=== PATIENT | female | born 1990 | race Caucasian/White ===

== ENCOUNTER 2023-05-11 20:22 | Emergency (ER) | payer SELFPAY ==
--- OUTSIDE RECORDS SUMMARY | 2023-05-11 21:02 | XMS REPORT | Continuity of Care Document ---
:1990 Author Organization [facility] t Address [address] [facility]. [address] [place] [address] Support Name Relationship Address Phone Humble Hernandez Significant Other [address] [facility] [phone] [address] [place] [address] YAHIR SOSA, IDA Emergency Provider [address] [facility] [phone] [place] [address] PHYSICIAN, NO Primary Care Physician Unavailable Unavailab CHRISTA Judge Next of Kin [address] [place] [address] DIANA SOSA, DOROTHEA Emergency Provider [address] [phone] [place] [address] CHRISTA REYEZ Next of Kin [address] [place] [address] SHARI SOSA, ASHANTI A Emergency Provider [address] [facility] [facility] [address] [phone] [place] [address] MARLEN SOSA, CAMMY P Attending Provider [address] [phone] [place] [address] TIM SOSA, MELISSA Bowling Emergency Provider [address] [place] [address] MD YARITZA RAMOS A Emergency Provider [facility] [address] MD RAMEZ STERN Emergency Provider Unavailable Unavailable MD CAROLINE MOHAMUD Emergency Provider [address] [place] [address] MD GLENYS GAN JR Admitting Provider [address] [place] [address] HUMBLE HERNANDEZ Family Member [address] [place] [address] MD ZULEYKA ABAD Emergency Provider [address] [phone] [place] [address] Care Team Providers Name Role Phone PCP, PATIENT DOES NOT HAVE A Primary Care Physician Unavailalvin DURANT Attending Clinician Unavailable ANTHONY GAMBOA Attending Clinician Unavailable Anthony Gamboa MD Attending Clinician ZULEYKA ABAD Attending Clinician Unavailable Lynda Yanez MD Attending Clinician LYNDA YANEZ Attending Clinician Unavailable CAMMY GEE Attending Clinician Unavailable Lee Martinez Attending Clinician VISIT, NURSE [facility] BRISA Attending Clinician Unavailable Nilda Vega Attending Clinician CARLEEN Admitting Clinician Unavailable ANTHONY GAMBOA Admitting Clinician Unavailable LYNDA YANEZ Admitting Clinician Unavailable CAMMY GEE Admitting Clinician Unavailable Payers Payer Name Policy Type Policy Number Effective Date Expiration Date S [place] MEDICAID-MD - [id number] 2023 [facility] 00:00:00 PROGRAM (MEDICAID) MEDICAID PENDING PENDING 2023 2023 00:00:00 00:00:00 [facility] [id number] 2018 CHOICE (MEDICAID 00:00:00 REPLACEMENT - HMO) Problems Condition Condition Condition Status Onset Resolution Last Treating Co mments Source Name Details Category Date Date Treatment Clinician Date Cyst of Cyst of Problem Active 2021-09 [place] Ovary 0-11 da [facility] Problem Active [place] test Test 1-04 da positive Positive 00:00: [facility] Asthma Asthma Disease Active Overview: Univer s 01-11 Formattin ity of 00:00: g of this [place] 00 note Medical might be Branch different from the original. ICD10 Diagnosis Term [employer] Attendant Utility Tobacco Tobacco Disease Active Univers use use 01-11 ity of disorder disorder 00:00: [place] [address] Medical Branch Encounter Encounter Disease Active Overview: Univers for for 5-06 Formattin ity of insertion insertion 00:00: g of this [place] of of 00 note Medical intrauteri intrauteri might be Branch ne ne different contracept contracept from the oanh device oanh device original. Pt will need WWE at next visit. Medical records received from Dr. Gee. Pap smear-2011- NILExp. 4 Depression Depression Disease Active 2013- U nivers 5-06 ity of 00:00: [place] 00 [facility] Branch Allergies, Adverse Reactions, Alerts Allergy Allergy Status Severity Reaction(s) Onset Inactive Treating Comm ents Source Name Type Date Date Clinician Amoxicil Propensi Active Other - See 2018-09 UTI U nivers nikos ty to comments 0- ity of adverse 00:00: [place] reaction 00 Medical s Branch AMOXICIL DRUG Active Other-Cmnt 2018-09 Univ ers NIKOS INGREDI 0-31 ity of 00:00: [place] 00 Medical Branch Amoxicil Allergy Active Severe Other Tyrel knott to da substanc [facility] Social History Social Habit Start Date Stop Date Quantity Comments Source History of tobacco Cigarette Smoker University of use [facility] Exposure to 2023-01-23 2023-02-02 Not sure [facility] SARS-CoV-2 (event) 00:00:00 01:21:00 [facility] Alcohol intake 2023-02-02 2023-02-02 0 /d University of 00:00:00 00:00:00 [facility] Cigarettes smoked 2015-04-14 2015-04-14 Univers ity of current (pack per 00:00:00 00:00:00 [place] ) - Reported Branch Tobacco use and 2015-04-14 2015-04-14 Smokeless Universit y of exposure 00:00:00 00:00:00 tobacco non-user [facility] dical Branch Cigarette 2015-04-14 2015-04-14 University of pack-years 00:00:00 00:00:00 [facility] Sex Assigned At [birth year] Universit y of 00:00:00 00:00:00 [facility] Smoking Status Start Date Stop Date Source Light Tobacco Smoker [place] [facility] Smokes tobacco daily 2015-04-14 00:00:00 Univers ity of [place] [facility] Medications Ordered Filled Start Stop Current Ordering Indication Dosage Frequency Signature Comments Components Source Medication Medication Date Date Medication? Clinician (SIG) Name Name clindamycin clindamycin No clindamyci [place] HCl 300 mg HCl 300 mg 02-28 n HCl 300 da capsule capsule 00:00: mg capsule E [facility] 00 [facility] Program iopamidol 2022- No [id number] 70mL 70 mL, Univers (ISOVUE 02-02 Intravenou ity o f 370-500 mL) 08:15: 08:15 s, ONCE, 1 [place] injection 00 :00 dose, On Medica l 70 mL [facility] 02/02/23 at 0315, Routine dicyclomine 2022- No 20mg 20 mg, Uni vers (BENTYL) 02-02 Intramuscu ity of injection 07:30: 07:01 [place]CE [place] 20 mg 00 :00 NOW, 1 Medical dose, On [facility] 02/02/23 at 0230, Routine ketorolac 2022- No 60mg 60 mg, Unive rs (TORADOL) 02-02 Intramuscu ity of injection 07:15: 07:01 lar[place]CE [place] 60 mg 00 :00 NOW, 1 Medical dose, On [facility] 02/02/23 at 0215, ANABELL ketorolac Yes [id number] 10mg Take 1 U nivers 10 mg 5-28 tablet by ity of tablet 00:00: mouth 00 every 6 Medical (six) Branch hours as needed for Pain (scale 4-6) or Pain (scale 7-10). hyoscyamine Yes [id number] .25mg Place 2 Univers sulfate 5-28 tablets ity of (LEVSIN/SL) 00:00: under the [place] 0.125 mg 00 tongue Medical sublingual every 6 Branch tablet (six) hours as needed (Abdominal pain or cramping). ondansetron Yes [id number] 8mg Take 1 Univers (ZOFRAN) 8 5-28 tablet by ity of mg tablet 00:00: mouth [place] 00 every 8 Medical (eight) Branch hours. acetaminoph 0 Yes [id number] 650mg Take 1 Univers en (TYLENOL 5-28 tablet by ity of ARTHRITIS 00:00: mouth [place] PAIN) 650 00 every 8 Medical mg CR (eight) Branch tablet hours as needed for Pain. ceftriaxone ceftriaxone No ceftriaxon [place] 500 mg 500 mg 1-19 e 500 mg da solution solution 14:45: solution E [facility] for for 00 for al injectionTa injectionTa injectionT Health ke 500 mg ke 500 mg katie 500 mg Outreac by by by h injection injection injection Program route. route. route. ceftriaxone ceftriaxone 2021-09 No ceftriaxon [place] 500 mg 500 mg 0-19 e 500 mg da solution solution 10:16: solution E [facility] for for 33 for al injectionTa injectionTa injectionT Health ke 500 mg ke 500 mg katie 500 mg Outreac by by by h injection injection injection Program route. route. route. levoFLOXaci 2019- No 750mg 750 mg, U nivers n 11-26 Oral, ONCE ity of (LEVAQUIN) 08:30: 07:43 NOW, 1 [place] tablet 750 00 :00 dose, Sat Medi lino mg 11/27/19 at Branch 0330, ANABELL
Re ason for Anti-Infec tive: Documented Infection< br>Documen radha Infection Site: Urine
D uration of Therapy: 7 days metroNIDAZO 2019-2019- No 2000mg 2,000 mg, Univers LE (FLAGYL) 11-26 Oral, ity of tablet 07:15: 06:12 ONCE, 1 [place] 2,000 mg 00 :00 dose, Sat Medica l 11/27/19 at Branch 0215, Routine
Reason for Anti-Infec tive: Empiric Therapy for Suspected Infection< br>Empiric Therapy Site: Pelvic
Duration of therapy: 72 hours azithromyci 2019-0 2020- No 2000mg 2,000 mg, Univers n 11-26 Oral, ity of (ZITHROMAX) 07:00: 06:12 ONCE, 1 [place] tablet 00 :00 dose, Sat Medical 2,000 mg 11/27/19 at [facility] h 0200, ANABELL
Re ason for Anti-Infec tive: Empiric Therapy for Suspected Infection< br>Empiric Therapy Site: Pelvic
Duration of therapy: 72 hours NaCl 0.9% 2019-0 2020- No 1000mL at 999 Uni vers (NS) bolus 11-26-21 mL/hr, ity of infusion 07:00: 07:53 1,000 mL, [place] 1,000 mL 00 :00 IV Medical Infusion, Branch ONCE, 1 dose, 11/27/19 at 0200, STAT iohexol 2019-0 2020- No 120mL 120 mL, Unive rs (OMNIPAQUE 11-26 Intravenou it y of 350 06:57: 06:57 s, ONCE, 1 [place] BULK-150 00 :00 dose, Sat Medica l mL) 11/27/19 at Branch injection 0200, 120 mL Routine acetaminoph 2020-0 Yes [id number] 1{tbl} Take 1-2 Univers en-codeine 3-21 tablets by ity of 300-30 mg 00:00: mouth [place] tablet 00 every 6 Medical (six) Branch hours as needed for Pain (scale 1-3). dicyclomine 2020-0 Yes [id number] 10mg Take 1 Univers (BENTYL) 10 3-21 capsule by it y of mg capsule 00:00: mouth 4 [place] 00 (four) Medical times Branch daily. acetaminoph 2020-0 Yes [id number] 1{tbl} Take 1-2 Univers en-codeine 3-21 tablets by ity of 300-30 mg 00:00: mouth [place] tablet 00 every 6 Medical (six) Branch hours as needed for Pain (scale 1-3). dicyclomine 2020-0 Yes [id number] 10mg Take 1 Univers (BENTYL) 10 3-21 capsule by it y of mg capsule 00:00: mouth 4 [place] 00 (four) Medical times Branch daily. levoFLOXaci 2020-0 2020- No [id number] 750mg Take 1 Univers n 3-21 04-01 tablet by ity of (LEVAQUIN) 00:00: 04:59 mouth [place] 750 mg 00 :00 every 24 Medical tablet (twenty-fo Branch ur) hours for 10 days. ParaGard T ParaGard T No 1device ParaGard T [place] 380A 380 380A 380 (s) 380A 380 da square mm square mm square mm [facility] intrauterin intrauterin intrauteri al e device e device ne device He alth Take 1 Take 1 Take 1 Outreac device by device by device by h intrauterin intrauterin intrauteri Program e route. e route. ne route. ceftriaxone ceftriaxone No 500mg ceftriaxon [place] 500 mg 500 mg e 500 mg da solution solution solution Epi scop for for for al injection injection injection Health Take 500 mg Take 500 mg Take 500 Outreac by by mg by h injection injection injection Program route. route. route. cephalexin cephalexin No cephalexin [place] 500 mg 500 mg 500 mg da capsule capsule capsule [facility] TAKE 1 TAKE 1 TAKE 1 al CAPSULE BY CAPSULE BY CAPSULE BY Health MOUTH FOUR MOUTH FOUR MOUTH FOUR Outreac TIMES DAILY TIMES DAILY TIMES h FOR FOR DAILY FOR Program INFECTION INFECTION INFECTION hydrocodone hydrocodone No hydrocodon [place] 5 5 e 5 da mg-acetamin mg-acetamin mg-acetami [facility] ophen 325 ophen 325 nophen 325 al mg tablet mg tablet mg tablet Health TAKE 1 TAKE 1 TAKE 1 Outreac TABLET BY TABLET BY TABLET BY h MOUTH EVERY MOUTH EVERY MOUTH Program 6 HOURS 6 HOURS EVERY 6 NEEDED FOR NEEDED FOR HOURS PAIN PAIN NEEDED FOR PAIN metronidazo metronidazo No metronidaz [place] 500 mg le 500 mg [place] 500 mg da tablet TAKE tablet TAKE tablet [facility] 1 TABLET BY 1 TABLET BY TAKE 1 al MOUTH TWICE MOUTH TWICE TABLET BY [facility] DAILY FOR 7 DAILY FOR 7 MOUTH Outreac DAYS DAYS TWICE h DAILY FOR Program 7 DAYS naproxen naproxen No naproxen [place] 500 mg 500 mg 500 mg da tablet TAKE tablet TAKE tablet [facility] 1 TABLET BY 1 TABLET BY TAKE 1 al MOUTH TWICE MOUTH TWICE TABLET BY [facility] DAILY FOR DAILY FOR MOUTH Outr eac PAIN PAIN TWICE h DAILY FOR Program PAIN nitrofurant nitrofurant No nitrofuran [place] oin oin toin da monohydrate monohydrate monohydrat [facility] /macrocryst /macrocryst e/macrocry al als 100 mg als 100 mg stals 100 Health capsule capsule mg capsule Out reac TAKE 1 TAKE 1 TAKE 1 h CAPSULE BY CAPSULE BY CAPSULE BY Program MOUTH EVERY MOUTH EVERY MOUTH 12 HOURS 12 HOURS EVERY 12 FOR 7 DAYS FOR 7 DAYS HOURS FOR 7 DAYS ondansetron ondansetron No ondansetro [place] HCl 4 mg HCl 4 mg n HCl 4 mg d a tablet TAKE tablet TAKE tablet [facility] 1 TABLET BY 1 TABLET BY TAKE 1 al MOUTH EVERY MOUTH EVERY TABLET BY Health 8 HOURS 8 HOURS MOUTH Ou treac NEEDED FOR NEEDED FOR EVERY 8 h NAUSEA OR NAUSEA OR HOURS P rogram VOMITING VOMITING NEEDED FOR NAUSEA OR VOMITING ParaGard T ParaGard T No 1device ParaGard T [place] 380A 380 380A 380 (s) 380A 380 da square mm square mm square mm [facility] intrauterin intrauterin intrauteri al e device e device ne device He alth Take 1 Take 1 Take 1 Outreac device by device by device by h intrauterin intrauterin intrauteri Program e route. e route. ne route. hydrocodone hydrocodone No hydrocodon [place] 5 5 e 5 da mg-acetamin mg-acetamin mg-acetami [facility] ophen 325 ophen 325 nophen 325 al mg tablet mg tablet mg tablet Health TAKE 1 TAKE 1 TAKE 1 Outreac TABLET BY TABLET BY TABLET BY h MOUTH EVERY MOUTH EVERY MOUTH Program 6 HOURS 6 HOURS EVERY 6 NEEDED FOR NEEDED FOR HOURS PAIN PAIN NEEDED FOR PAIN naproxen naproxen No naproxen [place] 500 mg 500 mg 500 mg da tablet TAKE tablet TAKE tablet [facility] 1 TABLET BY 1 TABLET BY TAKE 1 al MOUTH TWICE MOUTH TWICE TABLET BY [facility] DAILY FOR DAILY FOR MOUTH Outr eac PAIN PAIN TWICE h DAILY FOR Program PAIN ondansetron ondansetron No ondansetro [place] HCl 4 mg HCl 4 mg n HCl 4 mg d a tablet TAKE tablet TAKE tablet [facility] 1 TABLET BY 1 TABLET BY TAKE 1 al MOUTH EVERY MOUTH EVERY TABLET BY Health 8 HOURS 8 HOURS MOUTH Ou treac NEEDED FOR NEEDED FOR EVERY 8 h NAUSEA OR NAUSEA OR HOURS P rogram VOMITING VOMITING NEEDED FOR NAUSEA OR VOMITING ParaGard T ParaGard T No 1device ParaGard T [place] 380A 380 380A 380 (s) 380A 380 da square mm square mm square mm [facility] intrauterin intrauterin intrauteri al e device e device ne device He alth Take 1 Take 1 Take 1 Outreac device by device by device by h intrauterin intrauterin intrauteri Program e route. e route. ne route. ParaGard T ParaGard T No 1device ParaGard T [place] 380A 380 380A 380 (s) 380A 380 da square mm square mm square mm [facility] intrauterin intrauterin intrauteri al e device e device ne device He alth Take 1 Take 1 Take 1 Outreac device by device by device by h intrauterin intrauterin intrauteri Program e route. e route. ne route. [facility] No 1device [facility] [place] 380A 380 380A 380 (s) 380A 380 da square mm square mm square mm [facility] intrauterin intrauterin intrauteri al e device e device ne device He alth Take 1 Take 1 Take 1 Outreac device by device by device by h intrauterin intrauterin intrauteri Program e route. e route. ne route. ceftriaxone ceftriaxone No 500mg ceftriaxon [place] 500 mg 500 mg e 500 mg da solution solution solution Epi scop for for for al injection injection injection Health Take 500 mg Take 500 mg Take 500 Outreac by by mg by h injection injection injection Program route. route. route. metronidazo metronidazo No 1 BID metronidaz [place] 500 mg le 500 mg ole 500 mg da tablet Take tablet Take tablet [facility] 1 tablet 1 tablet Take 1 al twice a day twice a day tablet Health by oral by oral twice a Outrea c route for 7 route for 7 day by h . . oral route Program for 7 days. [facility] No 1device [facility] [place] 380A 380 380A 380 (s) 380A 380 da square mm square mm square mm [facility] intrauterin intrauterin intrauteri al e device e device ne device He alth Take 1 Take 1 Take 1 Outreac device by device by device by h intrauterin intrauterin intrauteri Program e route. e route. ne route. fluconazole fluconazole No fluconazol [place] 150 mg 150 mg e 150 mg da tablet TAKE tablet TAKE tablet [facility] 1 TABLET BY 1 TABLET BY TAKE 1 al MOUTH EVERY MOUTH EVERY TABLET BY Health OTHER DAY OTHER DAY MOUTH Outr eac FOR 6 DAYS FOR 6 DAYS EVERY h OTHER DAY Program FOR 6 DAYS hyoscyamine hyoscyamine No hyoscyamin [place] 0.125 mg 0.125 mg e 0.125 mg d a sublingual sublingual sublingual [facility] tablet tablet tablet al Health Outreac h Program [facility] No 1device [facility] [place] 380A 380 380A 380 (s) 380A 380 da square mm square mm square mm [facility] intrauterin intrauterin intrauteri al e device e device ne device He alth Take 1 Take 1 Take 1 Outreac device by device by device by h intrauterin intrauterin intrauteri Program e route. e route. ne route. terconazole terconazole No terconazol [place] 0.4 % 0.4 % e 0.4 % da vaginal vaginal vaginal [facility] cream cream cream al INSERT 1 INSERT 1 INSERT 1 Hea lth APPLICATORF APPLICATORF APPLICATOR Outreac UL UL FUL h VAGINALLY VAGINALLY VAGINALLY Program EVERY DAY EVERY DAY EVERY DAY FOR 7 DAYS FOR 7 DAYS FOR 7 DAYS Macrobid Macrobid No 1capsul Q12H Macrobid [place] 100 mg 100 mg e(s) 100 mg da capsule capsule capsule [facility] Take 1 Take 1 Take 1 al capsule capsule capsule Health every 12 every 12 every 12 Out reac hours by hours by hours by h oral route oral route oral route Program for 7 days. for 7 days. for 7 days. metronidazo metronidazo No 1 BID metronidaz [place] 500 mg le 500 mg [place] 500 mg da tablet Take tablet Take tablet [facility] 1 tablet 1 tablet Take 1 al twice a day twice a day tablet Health by oral by oral twice a Outrea c route for 7 route for 7 day by h days. days. oral route Program for 7 days. Immunizations Ordered Filled Immunization Date Status Comments [facility] e Immunization Name Name [facility] 2009-08-07 Completed [place] [id number], [id number], 00:00:00 [facility] all formulations - all formulations - Outreach Program [facility] 2009-08-07 Completed [place] [id number], [id number], 00:00:00 [facility] all formulations - all formulations - Outreach Program [facility] 2009-08-07 Completed [place] [id number], [id number]-[id number], 00:00:00 [facility] all formulations - all formulations - Outreach Program [facility] 2009-08-07 Completed [place] [id number], [id number]-[id number], 00:00:00 [facility] all formulations - all formulations - Outreach Program [facility] 2005-09-08 Completed [facility] 00:00:00 [facility] TD, NOS 2005-09-08 Completed [facility] 00:00:00 [facility] Vital Signs Vital Name Observation Time Observation Value Comments Source BP Diastolic 2023-02-28 00:00:00 77 mm[Hg] [place] [facility] Height 2023-02-28 00:00:00 62 [in_i] [place] [facility] BMI (Body Mass 2023-02-28 00:00:00 29.8 kg/m2 [place]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) [facility] BP Systolic 2023-02-28 00:00:00 116 mm[Hg] [place] [facility] Body Weight 2023-02-28 00:00:00 163.2 [lb_av] [place] [facility] Systolic blood 2023-02-02 10:29:00 100 mm[Hg] [facility]iver [facility] Diastolic blood 2023-02-02 10:29:00 64 mm[Hg] Unive rsity [facility] Heart rate 2023-02-02 10:29:00 75 /min [facility] Body temperature 2023-02-02 10:29:00 36.61 Odette [facility] Res[facility] rate 2023-02-02 10:29:00 18 /min [facility] Oxygen saturation in 2023-02-02 10:29:00 99 /min [facility] Arterial blood by [facility] Pulse oximetry [place] Body height 2023-02-02 06:19:00 157.5 cm [facility] Body weight 2023-02-02 06:19:00 68.04 kg [facility] BMI 2023-02-02 06:19:00 27.44 kg/m2 [facility] Height 2022-09-26 00:00:00 62 [in_i] [place] [facility] BP Diastolic 2022-09-18 00:00:00 82 mm[Hg] [place] [facility] Height 2022-09-18 00:00:00 62 [in_i] [place] [facility] BMI (Body Mass 2022-09-18 00:00:00 28.9 kg/m2 [place]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) [facility] BP Systolic 2022-09-18 00:00:00 110 mm[Hg] [place] [facility] Body Weight 2022-09-18 00:00:00 158 [lb_av] [place] [facility] BP Diastolic 2022-07-17 00:00:00 80 mm[Hg] [place] [facility] Height 2022-07-17 00:00:00 62 [in_i] [place] [facility] BMI (Body Mass 2022-07-17 00:00:00 28 kg/m2 [place]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) [facility] BP Systolic 2022-07-17 00:00:00 133 mm[Hg] [place] [facility] Body Weight 2022-07-17 00:00:00 153 [lb_av] [place] [facility] Height 2022-06-18 00:00:00 62 [in_i] [place] [facility] BMI (Body Mass 2022-06-18 00:00:00 28.9 kg/m2 [place]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) [facility] Body Weight 2022-06-18 00:00:00 158 [lb_av] [place] [facility] Systolic blood 2019-11-27 05:50:00 123 mm[Hg] Univer sity of pressure [facility] Diastolic blood 2019-11-27 05:50:00 83 mm[Hg] [facility] Heart rate 2019-11-27 05:50:00 85 /min [facility] Azlei [facility] Body temperature 2019-11-27 05:50:00 36.39 [place] [facility] Respiratory rate 2019-11-27 05:50:00 16 /min [facility] Body weight 2019-11-27 05:50:00 75.697 kg Universi ty [facility] BMI 2019-11-27 05:50:00 29.56 kg/m2 Universi ty [facility] Oxygen saturation in 2019-11-27 05:50:00 98 /min University of Arterial blood by [facility] Pulse oximetry [place] Body height 2019-11-27 05:49:00 160 cm Universi ty [facility] Systolic blood 2019-11-27 05:50:00 123 mm[Hg] Univer sity of pressure [facility] Diastolic blood 2019-11-27 05:50:00 83 mm[facility]Hg] [facility] 2019-11-27 05:50:00 85 /min Universi ty [facility] Body temperature 2019-11-27 05:50:00 36.39 Odette [facility] Respiratory rate 2019-11-27 05:50:00 16 /min [facility] Body weight 2019-11-27 05:50:00 75.697 kg Universi ty [facility] BMI 2019-11-27 05:50:00 29.56 kg/m2 Universi ty [facility] Oxygen saturation in 2019-11-27 05:50:00 98 /min University of Arterial blood by [facility] Pulse oximetry [place] Body height 2019-11-27 05:49:00 160 cm [facility] Procedures Procedure Date / Time Performing Clinician Source Performed ADC CLC OR LCC ONLY - WET 2023-02-02 08:55:00 [facility] 2023-02-02 07:21:00 Anthony Gamboa [facility] CONTRAST [facility] POCT TEST 2023-02-02 06:53:00 Anthony Gamboa [facility] COMP. METABOLIC PANEL 2023-02-02 06:46:00 [facility] ([id number]) [facility] CBC WITH DIFF 2023-02-02 06:46:00 Anthony Gamboa [facility] URINALYSIS 2023-02-02 06:46:00 Anthony Gamboa [facility] CONSENT/REFUSAL FOR 2023-02-02 06:11:53 Doctor Unassigned, [facility] DIAGNOSIS AND TREATMENT [facility] ABDOMEN PELVIS W 2019-11-27 06:59:00 Lynda Yanez [facility] URINALYSIS 2019-11-27 06:06:00 Lynda Yanez [facility] LIPASE 2019-11-27 06:05:00 Lynda Yanez [facility] TEST, SERUM 2019-11-27 06:05:00 Lynda Yanez U [facility] COMP. METABOLIC PANEL 2019-11-27 06:05:00 Lynda Yanez U [facility] ([id number]) [facility] CBC WITH DIFFERENTIAL 2019-11-27 06:05:00 Lynda Yanez U [facility] Dilation and Curettage 2018-11-06 00:00:00 [place] [facility] Ovarian Cystectomy [place] [facility] Cholecystectomy [place] [facility] Plan of Care Planned Activity Planned Date Details Comments Source Diagnostic Test 2023-02-28 urinalysis, [place] Ep iscopal Pending 00:00:00 dipstick [code = Health Outr each urinalysis, Program dipstick] Diagnostic Test 2023-02-28 CT + NG + TV, DNA, [place] 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 [facility] Pending 00:00:00 urine/swab [code = Health Ou treach CT + NG + TV, DNA, Program urine/swab] Encounters Start End Encounter Admission Attending Care Care Encounter Source Date/Time Date/Time Type Type Clinicians Facility Department ID 2013-06-10 Inpatient [facility] [id number] [place] 19:12:00 -[id number] [facility] 2023-03-01 2023-03-01 Outpatient [place]DO [place] 713 [place] 00:00:00 00:00:00 [facility] 2023-02-28 2023-02-28 Outpatient OSVALDO NEELYHOP [place] 00:00:00 00:00:00 [facility] 2023-02-28 2023-02-28 [place] - [id number] M [place] 00:00:00 00:00:00 [place] Peace, Christianity Episco p SKILLED NURSING FACILITY COUNSELOR: [address] HOP - [facility] [address] F N, [place] [facility] [place] [phone] Alex am , Ph. 2023-02-02 2023-02-02 Emergency X BEE, [facility] ERT [id number] Univers 01:12:00 05:55:00 ANTHONY [facility] 2023-02-02 2023-02-02 Emergency Bee, [facility] [id number] Univers 01:12:00 05:55:00 [facility] [id number] it y of [place] [id number] [facility] [phone] [address] ([facility]) 2022-10-07 2022-10-07 Outpatient ANGIE_ANGEL [place] ARHOP [place] 00:00:00 00:00:00 [facility] 2022-09-26 2022-09-26 Outpatient ANGIE_ANGEL [place] ARHOP [place] 00:00:00 00:00:00 SSA 0119 [facility] 2022-09-26 2022-09-26 [place] - [id number] M at[place] 00:00:00 00:00:00 [place] Peace, Christianity Episco p SKILLED NURSING FACILITY COUNSELOR: [address] H[address] - MERUPESH Ureñae F N, PRODUCTION TECH [facility] [place] [phone] Alex trinh , Ph. 2022-09-18 2022-09-18 Outpatient ANGIE_ANGEL [place] ARHOP 71 [place] 00:00:00 00:00:00 S[facility] 0111 [facility] 2022-09-18 2022-09-18 Outpatient OSVALDO NEELYHOP 713 [place] 00:00:00 00:00:00 SSA 0118 [facility] 2022-09-18 2022-09-18 [place] - [id number] M at[place]or 00:00:00 00:00:00 Waleska Shu Peace, Christianity Episco p SKILLED NURSING FACILITY COUNSELOR: [address] F N, PRODUCTION TECH [facility] [phone] Progr am , Ph. 2022-07-17 2022-07-17 Outpatient OSVALDO NEELYHOP 713 [place] 00:00:00 00:00:00 SSA 1109 [facility] 2022-07-17 2022-07-17 [place] - [id number] M at[place]or 00:00:00 00:00:00 Waleska Shu Peace, Christianity Episco p SKILLED NURSING FACILITY COUNSELOR: [address] F N, PRODUCTION TECH [facility] [phone] Progr am , Ph. 2022-06-26 2022-06-26 Outpatient OSVALDO NEELYHOP 713 [place] 00:00:00 00:00:00 SSA 1019 [facility] 2022-06-26 2022-06-26 [place] - [id number] M at[place]or 00:00:00 00:00:00 Waleska Shu Peace, Christianity Episco p SKILLED NURSING FACILITY COUNSELOR: [address] F N, PRODUCTION [place] [facility] [place] [phone] Progr am , Ph. 2022-06-18 2022-06-19 Emergency ER JENNIFFER, [facility] [id number] [place] 23:28:00 06:48:00 ZULEYKA -[id number] [facility] 2022-06-18 2022-06-18 Outpatient [place]DO [place] [facility] 713 [place] 00:00:00 00:00:00 [facility]1 [facility] 2022-06-18 2022-06-18 [place] - [id number] M [place] 00:00:00 00:00:00 [place] da Angie, Christianity Episco p SKILLED NURSING FACILITY COUNSELOR: 111 [facility] al Daniele F N, PRODUCTION TECH [facility] [phone] [facility] , Ph. 2021-12-31 2021-12-31 Outpatient OSVALDO [place] [facility] 713 [place] 00:00:00 00:00:00 SSA 0425 [facility] 2019-11-27 2019-11-27 Emergency Yanez, TRAUMA [id number] Univers 00:51:43 02:54:00 [id number] [facility] [id number] [facility] [phone] [address] 2019-11-27 2019-11-27 Emergency X KIA, [facility] ERT [id number] Univers 00:51:43 02:54:00 LYNDA ity [facility] 2019-11-27 2019-11-27 Emergency Yanez, TRAUMA [id number] 00:51:43 02:54:00 [facility] [id number] 2018-11-04 2018-11-05 Inpatient LORI GEE, [facility] MOB [id number] [place] 15:22:00 09:33:00 CAMMY -[id number] [facility] 2018-10-29 2018-10-29 Ambulatory nullFlavo [facility] AUTHORIZATION REPRESENTATIVE 3 [id number] Memoria 20:30:00 20:30:00 Pre-Reg r Needham 01 l Zain 2018-10-29 2018-10-29 Ambulatory nullFlavo [facility] AUTHORIZATION REPRESENTATIVE 3 [id number] Memoria 20:30:00 20:30:00 Pre-Reg r Dottie 01 josé miguel Pickford 2018-10-29 2018-10-29 Ambulatory nullFlavo [facility] AUTHORIZATION REPRESENTATIVE 3 [id number] Memoria 20:00:00 20:00:00 Pre-Reg r Dottie 00 josé miguel Pickford 2018-10-29 2018-10-29 Ambulatory nullFlavo [facility] AUTHORIZATION REPRESENTATIVE 3 [id number] Memoria 20:00:00 20:00:00 Pre-Reg r Needham 00 josé miguel Pickford 2018-10-29 2018-10-29 Outpatient Srinivasani, [facility] [id number] 14:30:00 14:30:00 Lee Pizano 2018-10-29 2018-10-29 Outpatient VISIT, MG MG [id number] 14:00:00 14:00:00 NURSE ST[facility] 00 BRISA 2018-10-20 2018-10-20 Ambulatory nullFlavo [facility] AUTHORIZATION REPRESENTATIVE 3 [id number] Memoria 19:30:00 19:30:00 Pre-Reg r Needham 05 josé miguel Pickford 2018-10-20 2018-10-20 Ambulatory nullFlavo [facility] AUTHORIZATION REPRESENTATIVE 3 [id number] Memoria 19:30:00 19:30:00 Pre-Reg r Needham 05 josé miguel Zain 2018-10-20 2018-10-20 Ambulatory nullFlavo [facility] AUTHORIZATION REPRESENTATIVE 3 [id number] Memoria 17:30:00 17:30:00 Pre-Reg r Needham 04 josé miguel Pickford 2018-10-20 2018-10-20 Ambulatory nullFlavo [facility] AUTHORIZATION REPRESENTATIVE 3 [id number] Memoria 17:30:00 17:30:00 Pre-Reg r Dottie 04 josé miguel Zain 2018-10-20 2018-10-20 Outpatient MHIE MHIE [id number] Memoria 13:30:00 13:30:00 Essie Pittman 2018-10-20 2018-10-20 Outpatient Lynda, MG [facility] [id number] 365 13:30:00 13:30:00 Nilda Valeria Gandara 2018-10-20 2018-10-20 Outpatient VISIT, MG MG [id number] 11:30:00 11:30:00 NURSE STWH 04 BRISA 2018-10-07 2018-10-08 Ambulatory nullFlavo [facility] AUTHORIZATION REPRESENTATIVE 3 [id number] Memoria 17:30:00 05:59:59 Pre-Reg r Needham 06 josé miguel Zain 2018-10-07 2018-10-08 Ambulatory nullFlavo [facility] AUTHORIZATION REPRESENTATIVE 3 [id number] Memoria 17:30:00 05:59:59 Pre-Reg r Needham 06 josé miguel Zain 2018-10-07 2018-10-07 Outpatient Gary, MG [facility] [id number] 11:30:00 23:59:59 Nilda Gandara 2018-10-07 2018-10-07 Outpatient MHIE [facility]IE [id number] Memoria 11:30:00 11:30:00 06 josé miguel Zain 2018-09-29 2018-10-01 Phone nullFlavo [facility] AUTHORIZATION REPRESENTATIVE [id number] Memoria 23:14:00 05:59:59 Message r Dottie 00 josé miguel Zain 2018-09-29 2018-10-01 Phone nullFlavo [facility] AUTHORIZATION REPRESENTATIVE [id number] Memoria 23:14:00 05:59:59 Message r Dottie 00 josé miguel Pickford 2018-09-29 2018-09-30 Outpatient [facility] [id number] 17:14:00 23:59:59 00 2018-09-29 2018-09-30 Outpatient [facility] [id number] 17:14:00 23:59:59 00 2018-09-29 2018-09-30 Outpatient nullFlavo [facility] AUTHORIZATION REPRESENTATIVE 3 [id number] Memoria 22:30:00 05:59:59 r Dottie 03 josé miguel Pittman 2018-09-29 2018-09-30 Outpatient nullFlavo [facility] AUTHORIZATION REPRESENTATIVE 3 [id number] Memoria 22:30:00 05:59:59 r Needham 03 josé miguel Pittman 2018-09-29 2018-09-30 Outpatient nullFlavo [facility] AUTHORIZATION REPRESENTATIVE 3 [id number] Memoria 21:00:00 05:59:59 r Dottie 02 josé miguel Pittman 2018-09-29 2018-09-30 Outpatient nullFlavo [facility] AUTHORIZATION REPRESENTATIVE 3 [id number] Memoria 21:00:00 05:59:59 r Dottie 02 josé miguel Pittman 2018-09-29 2018-09-29 Outpatient Gary [facility] [id number] 16:30:00 23:59:59 Nilda 03 Juliocesar 2018-09-29 2018-09-29 Outpatient Gary [facility] [id number] 15:00:00 23:59:59 Nilda 02 Juliocesar 2018-09-29 2018-09-29 Outpatient Gary [facility] [id number] 15:00:00 23:59:59 Nilda 02 Juliocesar 2018-09-29 2018-09-29 Outpatient ALMA PARVEZ [id number] Memoria 16:30:00 16:30:00 03 josé miguel Pittman 2018-09-29 2018-09-29 Outpatient PARVEZ PARVEZ [id number] Memoria 15:00:00 15:00:00 02 josé miguel Pittman Results Test Description Test Time Test Comments Results Result Comments Source Urinalysis macro (dipstick) panel - Urine 2023-02-28 14:42:0 0 Test Item Value Reference Range Interpretation Comme nts Leukocytes (test code = Leukocytes) neg Nitrite (test code = Nitrite) neg Urobilinogen (test code = Urobilinogen) 0.2 Protein (test code = Protein) neg pH (test code = pH) 6.0 Blood (test code = Blood) neg Specific Bridgman (test code = Specific Bridgman) 1.010 Ketone (test code = Ketone) neg Bilirubin (test code = Bilirubin) neg Glucose (test code = Glucose) neg [facility]OLIC PANEL (31944) 2023-02-02 07:07:49 Test Item Value Reference Range Interpretation Comments NA (test code = 136 mmol/L 135-145 3540311343) K (test code = 4.5 mmol/L 3.5-5.0 8154465802) CL (test code = 99 mmol/L 98-108 0521613059) CO2 TOTAL (test code 27 mmol/L 23-31 = 3399074633) AGAP (test code = 10 2-16 3569929773) BUN (test code = 12 mg/dL 7-23 2234614187) GLUCOSE (test code = 87 mg/dL 70-110 4629229691) CREATININE (test code 0.60 mg/dL 0.50-1.04 = 2586834613) TOTAL BILI (test code 0.4 mg/dL 0.1-1.1 = 4454164377) CALCIUM (test code = 8.7 mg/dL 8.6-10.6 3059446337) T PROTEIN (test code 7.5 g/dL 6.3-8.2 = 7379696037) ALBUMIN (test code = 4.3 g/dL 3.5-5.0 0179477884) ALK PHOS (test code = 60 U/L 34-122 6388951393) ALTv (test code = 18 U/L 5-35 1742-6) AST(SGOT) (test code 20 U/L 13-40 = 9863071827) eGFR (test code = 114.4 mL/min/1.73m2 5512210417) GLENIS (test code = GLENIS) Association of Glomerular Filtration Rate (GFR) and Staging of Kidney Disease* + + +- +| GFR (mL/min/1.73 m2) ?| With Kidney Damage ?| ?Without Kidney Damage+ ------+ ----+ ------+| ?>90 ?| ?Stage one ?| ? Normal ?+ -+ + -+| ?60-89 ?| ?Stage two ?| ? Decreased GFR ? + + +- +| ?30-59 ?| ?Stage three ?| ? Stage three ? + + +- +| ?15-29 ?| ?Stage four ? | ? Stage four ?+ -+ + -+| ?<15 (or dialysis) ? ?| ?Stage five ? | ? Stage five ?+ -+ + -+ *Each stage assumes the associated GFR level has been in effect for at least three months. ?Stages 1 to 5, with or without kidney disease, indicate chronic kidney disease. Notes: Determination of stages one and two (with eGFR >59mL/min/1.73 m2) requires estimation of kidney damage for at least three months as defined by structural or functional abnormalities of the kidney, manifested by either:Pathological abnormalities or Markers of kidney damage (including abnormalities in the composition of the blood or urine or abnormalities in imaging tests). [facility] WITH [id number] 07:01:53 Test Item Value Reference Range Interpretation Comments WBC (test code = 7.19 See_Comment [Automated 6690-2) message] The sy stem which generated this result transmitted reference range : 4.30 - 11.10 10*3/?L. The reference range was not used to interpret this result as normal/abnormal . RBC (test code = 4.68 See_Comment [Automated 789-8) message] The sy stem which generated this result transmitted reference range : 3.93 - 5.25 10*6/?L. The reference range was not used to interpret this result as normal/abnormal . HGB (test code = 13.8 g/dL 11.6-15.0 718-7) HCT (test code = 40.5 % 35.7-45.2 4544-3) MCV (test code = 86.5 fL 80.6-95.5 787-2) MCH (test code = 29.5 pg 25.9-32.8 785-6) MCHC (test code = 34.1 g/dL 31.6-35.1 786-4) RDW-SD (test code = 43.6 fL 39.0-49.9 20029-5) RDW-CV (test code = 13.6 % 12.0-15.5 788-0) PLT (test code = 153 See_Comment L [Automated 777-3) message] The sy stem which generated this result transmitted reference range : 166 - 358 10*3/ ?L. The reference r tania was not used to interpret this result as normal/abnormal . MPV (test code = 12.9 fL 9.5-12.9 57075-9) IPF % (test code = 10.7 % 1.3-7.7 H Platelet count 4705631920) measured by fluorescence method. NRBC/100 WBC (test 0.0 See_Comment [Automat ed code = 8074125358) message] The system which generated this result transmitted reference range : 0.0 - 10.0 /100 WBCs. The refer ence range was not u sed to interpret th is result as normal/abnormal . NRBC x10^3 (test code See_Comment [Auto mated = 4547373499) message] The s ystem which generated this result transmitted reference range : 10*3/?L. The reference range was not used to interpret this result as normal/abnormal . GRAN MAT (NEUT) % 49.8 % (test code = 770-8) IMM GRAN % (test code 0.10 % = 8508269213) LYMPH % (test code = 36.3 % 736-9) MONO % (test code = 8.1 % 5905-5) EOS % (test code = 4.9 % 713-8) BASO % (test code = 0.8 % 706-2) GRAN MAT x10^3(ANC) 3.58 10*3/uL 1.88-7.09 (test code = 3517525012) IMM GRAN x10^3 (test 0.00-0.06 code = 0704113835) LYMPH x10^3 (test code 2.61 10*3/uL 1.32-3.29 = 731-0) MONO x10^3 (test code 0.58 10*3/uL 0.33-0.92 = 742-7) EOS x10^3 (test code = 0.35 10*3/uL 0.03-0.39 711-2) BASO x10^3 (test code 0.06 10*3/uL 0.01-0.07 = 704-7) Lab Interpretation Abnormal (test code = 56535-7) [facility] [id number] 06:53:00 Test Item Value Reference Range Interpretation Comments POCT PREG (test code = 1605) Negative On board controls acceptable with Yes C Line (test code = 3574) POCT PREG LOT # (test code = 3575) [id number] POCT PREG TEST DATE (test 04/15/2024 code = 3576) Lab Interpretation (test code = Normal 41777-7) [facility] CenterCytology report of Cervical or vaginal smear or scraping Cyto stain.thin [id number] 00:00:00 Test Item Value Reference Range Interpretation Comments Human papilloma virus 16 DNA negative negative [Presence] in Cervix by Probe with signal amplification (test code = 03833-0) Human papilloma virus 18+45 E6+E7 negative negative mRNA [Presence] in Cervix by MARIMAR with probe detection (test code = 25429-5) [facility] by [id number] 00:00:00 Test Item Value Reference Range Interpretation Comments Bacteria identified in Urine by comment Culture (test code = 630-4) [facility] [Presence] in Serum by RPR 2022-09-19 00:00:00 Test Item Value Reference Range Interpretation Comments Reagin Ab [Presence] in Serum by non reactive non reactive RPR (test code = 95093-5) [facility] 2 tests - Meaningful Use [id number] 00:00:00 Test Item Value Reference Range Interpretation Comments HIV 1+2 Ab+HIV1 p24 Ag non reactive non reactive [Presence] in Serum or Plasma by Immunoassay (test code = 37991-1) [facility]atitis [facility] virus surface Ag [Presence] in Serum or Plasma by [id number] 00:00:00 Test Item Value Reference Range Interpretation Comments Hepatitis B virus surface Ag negative negative [Presence] in Serum or Plasma by Immunoassay (test code = 5196-1) [facility] Cervical or vaginal smear or scraping Cyto stain.thin [id number] 00:00:00 Test Item Value Reference Range Interpretation Comments age gdln acog testing (test code = 30-65 age gdln acog testing) Cytology report of Cervical or comment vaginal smear or scraping Cyto stain (test code = 40654-9) Statement of adequacy comment [Interpretation] of Cervical or vaginal smear or scraping by Cyto stain (test code = 81896-6) Data Scientist who read Cyto stain of comment Cervical or vaginal smear or scraping (test code = 24385-0) Microscopic observation [Identifier] . in Specimen by Other stain (test code = 30458-6) note: (test code = note:) comment Cytology report of Cervical or comment vaginal smear or scraping Cyto stain.thin prep (test code = 52211-6) Human papilloma virus positive negative A 16+18+31+33+35+39+45+51+52+56+58+59+ 66+68 DNA [Presence] in Cervix by Probe with signal amplification (test code = 94599-4) HPV genotype reflex (test code = HPV comment genotype reflex) Chlamydia trachomatis rRNA negative negative [Presence] in Cervix by MARIMAR with probe detection (test code = 02779-2) Neisseria gonorrhoeae rRNA positive negative A [Presence] in Cervix by MARIMAR with probe detection (test code = 50288-2) Trichomonas vaginalis rRNA negative negative [Presence] in Specimen by MARIMAR with probe detection (test code = 27515-7) [facility] Center[facility] pathogens panel - Vaginal fluid by MARIMAR with probe [id number] 00:00:00 Test Item Value Reference Range Interpretation Comments Atopobium vaginae DNA [Presence] moderate - 1 in Vaginal fluid by MARIMAR with probe detection (test code = 79670-7) Bacterial vaginosis associated high - 2 A bacterium 2 DNA [Presence] in Vaginal fluid by MARIMAR with probe detection (test code = 64971-4) Megasphaera sp type 1 DNA high - 2 A [Presence] in Vaginal fluid by MARIMAR with probe detection (test code = 55973-8) Romi albicans DNA [Presence] negative negative in Vaginal fluid by MARIMAR with probe detection (test code = 42521-5) Romi glabrata DNA [Presence] negative negative in Vaginal fluid by MARIMAR with probe detection (test code = 84900-6) Trichomonas vaginalis DNA positive negative A [Presence] in Vaginal fluid by MARIMAR with probe detection (test code = 03684-5) Chlamydia trachomatis DNA negative negative [Presence] in Vaginal fluid by MARIMAR with probe detection (test code = 20534-8) Neisseria gonorrhoeae DNA positive negative A [Presence] in Vaginal fluid by MARIMAR with probe detection (test code = 68790-8) [facility] panel - Vaginal fluid by MARIMAR with probe [id number] 00:00:00 Test Item Value Reference Range Interpretation Comments Atopobium vaginae DNA [Presence] moderate - 1 in Vaginal fluid by MARIMAR with probe detection (test code = 37964-0) Bacterial vaginosis associated high - 2 A bacterium 2 DNA [Presence] in Vaginal fluid by MARIMAR with probe detection (test code = 38836-7) Megasphaera sp type 1 DNA high - 2 A [Presence] in Vaginal fluid by MARIMAR with probe detection (test code = 35551-7) Romi albicans DNA [Presence] negative negative in Vaginal fluid by MARIMAR with probe detection (test code = 49395-8) Romi glabrata DNA [Presence] negative negative in Vaginal fluid by MARIMAR with probe detection (test code = 74995-4) Trichomonas vaginalis DNA positive negative A [Presence] in Vaginal fluid by MARIMAR with probe detection (test code = 95682-5) Chlamydia trachomatis DNA negative negative [Presence] in Vaginal fluid by MARIMAR with probe detection (test code = 07680-2) Neisseria gonorrhoeae DNA positive negative A [Presence] in Vaginal fluid by MARIMAR with probe detection (test code = 27665-1) [facility] Outreach ProgramUrinalysis complete panel - Urine 2022-06-19 00:00:00 Test Item Value Reference Range Interpretation Comments Specific gravity of Urine by Test <=1.005 1.005-1.030 A strip (test code = 5811-5) pH of Urine by Test strip (test 6.0 5.0-7.5 code = 5803-2) Color of Urine (test code = 5778-6) yellow yellow Appearance of Urine (test code = clear clear 5767-9) Leukocyte esterase [Presence] in 3+ negative A Urine by Test strip (test code = 5799-2) Protein [Presence] in Urine by Test negative negative/trace strip (test code = 70154-2) Glucose [Presence] in Urine by Test negative negative strip (test code = 55956-8) Ketones [Presence] in Urine by Test negative negative strip (test code = 2514-8) Hemoglobin [Presence] in Urine by negative negative Test strip (test code = 5794-3) Bilirubin.total [Presence] in Urine negative negative by Test strip (test code = 5770-3) Urobilinogen [Mass/volume] in Urine 1.0 mg/dL 0.2-1.0 by Test strip (test code = 93821-9) Nitrite [Presence] in Urine by Test positive negative A strip (test code = 5802-4) Microscopic observation manager field investigations [Identifier] in Urine sediment by Light microscopy (test code = 88904-2) Leukocytes [#/area] in Urine 11-30 0-5 A sediment by Microscopy high power field (test code = 5821-4) Erythrocytes [#/area] in Urine 3-10 0-2 A sediment by Microscopy high power field (test code = 57356-5) Epithelial cells [#/area] in Urine 0-10 0-10 sediment by Microscopy high power field (test code = 5787-7) Epithelial cells.renal [#/area] in manager field investigations Urine sediment by Microscopy high power field (test code = 43238-0) Casts [Presence] in Urine sediment none seen none seen by Light microscopy (test code = 33412-5) Casts [Type] in Urine sediment by manager field investigations Light microscopy (test code = 41769-9) Unidentified crystals [Presence] in manager field investigations Urine sediment by Light microscopy (test code = 5783-6) Crystals [type] in Urine sediment manager field investigations by Light microscopy (test code = 5782-8) Mucus [Presence] in Urine sediment manager field investigations by Light microscopy (test code = 8247-9) Bacteria [#/area] in Urine sediment few none seen/few by Microscopy high power field (test code = 5769-5) Yeast [#/area] in Urine sediment by manager field investigations Microscopy high power field (test code = 5822-2) Trichomonas vaginalis [Presence] in manager field investigations Urine sediment by Light microscopy (test code = 5813-1) Urine sediment comments by Light manager field investigations microscopy Narrative (test code = 62308-9) [facility] Outreach ProgramUrinalysis complete panel - Urine 2022-06-19 00:00:00 Test Item Value Reference Range Interpretation Comments Specific gravity of Urine by Test <=1.005 1.005-1.030 A strip (test code = 5811-5) pH of Urine by Test strip (test 6.0 5.0-7.5 code = 5803-2) Color of Urine (test code = 5778-6) yellow yellow Appearance of Urine (test code = clear clear 5767-9) Leukocyte esterase [Presence] in 3+ negative A Urine by Test strip (test code = 5799-2) Protein [Presence] in Urine by Test negative negative/trace strip (test code = 32797-1) Glucose [Presence] in Urine by Test negative negative strip (test code = 87149-8) Ketones [Presence] in Urine by Test negative negative strip (test code = 2514-8) Hemoglobin [Presence] in Urine by negative negative Test strip (test code = 5794-3) Bilirubin.total [Presence] in Urine negative negative by Test strip (test code = 5770-3) Urobilinogen [Mass/volume] in Urine 1.0 mg/dL 0.2-1.0 by Test strip (test code = 96688-3) Nitrite [Presence] in Urine by Test positive negative A strip (test code = 5802-4) Microscopic observation manager field investigations [Identifier] in Urine sediment by Light microscopy (test code = 03845-5) Leukocytes [#/area] in Urine 11-30 0-5 A sediment by Microscopy high power field (test code = 5821-4) Erythrocytes [#/area] in Urine 3-10 0-2 A sediment by Microscopy high power field (test code = 20007-3) Epithelial cells [#/area] in Urine 0-10 0-10 sediment by Microscopy high power field (test code = 5787-7) Epithelial cells.renal [#/area] in manager field investigations Urine sediment by Microscopy high power field (test code = 47046-5) Casts [Presence] in Urine sediment none seen none seen by Light microscopy (test code = 53909-5) Casts [Type] in Urine sediment by manager field investigations Light microscopy (test code = 75411-5) Unidentified crystals [Presence] in manager field investigations Urine sediment by Light microscopy (test code = 5783-6) Crystals [type] in Urine sediment manager field investigations by Light microscopy (test code = 5782-8) Mucus [Presence] in Urine sediment manager field investigations by Light microscopy (test code = 8247-9) Bacteria [#/area] in Urine sediment few none seen/few by Microscopy high power field (test code = 5769-5) Yeast [#/area] in Urine sediment by manager field investigations Microscopy high power field (test code = 5822-2) Trichomonas vaginalis [Presence] in manager field investigations Urine sediment by Light microscopy (test code = 5813-1) Urine sediment comments by Light manager field investigations microscopy Narrative (test code = 85769-7) [facility] ProgramUrinalysis macro (dipstick) panel - [id number] 10:40:00 Test Item Value Reference Range Interpretation Comments Leukocytes (test code = Leukocytes) large Nitrite (test code = Nitrite) positive Urobilinogen (test code = 1+ Urobilinogen) Protein (test code = Protein) neg pH (test code = pH) 5.5 Blood (test code = Blood) neg Specific Bridgman (test code = 1.010 Specific Bridgman) Ketone (test code = Ketone) neg Bilirubin (test code = Bilirubin) 1+ Glucose (test code = Glucose) neg [facility] - [id number] 10:40:00 Test Item Value Reference Range Interpretation Comments Leukocytes (test code = Leukocytes) large Nitrite (test code = Nitrite) positive Urobilinogen (test code = 1+ Urobilinogen) Protein (test code = Protein) neg pH (test code = pH) 5.5 Blood (test code = Blood) neg Specific Bridgman (test code = 1.010 Specific Bridgman) Ketone (test code = Ketone) neg Bilirubin (test code = Bilirubin) 1+ Glucose (test code = Glucose) neg [facility] - [id number] 10:40:00 Test Item Value Reference Range Interpretation Comments Leukocytes (test code = Leukocytes) large Nitrite (test code = Nitrite) positive Urobilinogen (test code = 1+ Urobilinogen) Protein (test code = Protein) neg pH (test code = pH) 5.5 Blood (test code = Blood) neg Specific Bridgman (test code = 1.010 Specific Bridgman) Ketone (test code = Ketone) neg Bilirubin (test code = Bilirubin) 1+ Glucose (test code = Glucose) neg [facility] 07:22:00 Test Item Value Reference Range Interpretation Comments APPEARANCE (test code Slightly Cloudy Clear A = 2669609256) COLOR (test code = Yellow Yellow 4722408348) PH (test code = 4.8-8.0 0069333809) SP GRAVITY (test code 1.003-1.035 = 3428879394) GLU U QUAL (test code Normal Normal = 3213367815) BLOOD (test code = Negative Negative 1976530336) KETONES (test code = Negative Negative 1647826963) PROTEIN (test code = Negative Negative 2887-8) UROBILIN (test code = Normal Normal 3060358289) BILIRUBIN (test code Negative Negative = 1950180121) NITRITE (test code = Negative Negative 6650849888) LEUK LINDSAY (test code 500/uL Negative A = 5044005506) RBC/HPF (test code = See_Comment [Autom ated 9131559847) message] The system which generated this result transmit radha reference range : 0 - 3 HPF. The reference range was not used to interpret this result as normal/abnormal . WBC/HPF (test code = See_Comment H [Autom ated 5044175513) message] The system which generated this result transmit radha reference range : 0 - 5 HPF. The reference range was not used to interpret this result as normal/abnormal . BACTERIA (test code = Moderate Negative A 4581882336) AMORPHOUS (test code Rare HPF = 8619154571) SQ EPITH (test code = HPF 4510997421) Lab Interpretation Abnormal (test code = 51529-1) [facility] PEL[facility] W [id number] 07:15:20 Fluid-filled loops of ileum in the right lower quadrant, with mild mucosalenhancement, possibly reflect a mild enteritis. IUD in the uterus. 6 mm fat density focus in the left ovary, likely representing a smalldermoid/teratoma. RL: 460 AFC: [id number] Electronically signed by Radha Mejia MD, PhD at11/27/2019 2:15 AMIndication: Acute generalized abdominal pain COMPARISON: None TECHNIQUE: Axial images of the abdomen and pelvis are performed followingadministration of intravenous contrast material. Images were reformatted inthe coronal and sagittal plane. CT scan was performed according to ALARA(aslow as reasonably achievable) policy. FINDINGS: The lung bases are clear. The patient is status postcholecystectomy. The liver, spleen, adrenal glands and pancreas are withinnormal limits. The kidneys are normal in appearance bilaterally withouthydronephrosis. There is no abdominal aortic aneurysm or dissection. There is no free fluid in the pelvis. There is an IUD in the endometrialcavity. 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 There is no bowel obstruction, widespread diverticulosis or acutediverticulitis. The appendix is identified and within normal limits. Thereare fluid-filled loops of ileum in the right lower quadrant, with mucosalenhancement Bone windows throughthe abdomen and pelvis demonstrate noosseous destructive lesion. [facility], Radiant Results Inft User - 11/27/2019 2:16 AM CDTIndication: Acute generalized abdominal painCOMPARISON: NoneTECHNIQUE: Axial images of the abdomen and pelvis are performed followingadministration of intravenous contrast material.Images were reformatted inthe coronal and sagittal plane. CT scan was performed according to ALARA(as low as reasonably achievable) policy.FINDINGS: The lung bases are clear. The patient is status postc holecystectomy. The liver, spleen, adrenal glands and pancreas are withinnormal limits. The kidneys are normal in appearance bilaterally withouthydronephrosis. There is no abdominal aortic aneurysm or dissection.There is no free fluid in the pelvis. There is an IUD in the endometrialcavity. There is asmall dermoid/teratoma in the left ovary, measuring 6mm. There is no bowel obstruction, widespread diverticulosis or acutediverticulitis. The appendix is identified and within normal limits. Thereare fluid-filled loops of ileum in the right lower quadrant, with mucosalenhancement Bone windows through the abdomen and pelvis demonstrate noosseous destructive lesion.IMPRESSIONFluid-filled loops of ileumin the right lower quadrant, with mild mucosalenhancement, possibly reflect a mild enteritis.IUD in the uterus.6 mm fat density focus in the left ovary, likely representing a smalldermoid/teratoma.RL: 460AF: 84706 [facility] CenterComplete Metabolic [id number] 06:35:00 Test Item Value Reference Range Interpretation Comments NA (test code = 136 mmol/L 135-145 6848337188) K (test code = 4.5 mmol/L 3.5-5 5411483483) CL (test code = 104 mmol/L 98-108 0214814697) CO2 TOTAL (test code = 25 mmol/L 23-31 7226418373) AGAP (test code = 2-16 7877922828) BUN (test code = 15 mg/dL 7-23 5719719596) GLUCOSE (test code = 85 mg/dL 70-110 4209853415) CREATININE (test code 0.80 mg/dL 0.5-1.04 = 3662483470) TOTAL BILI (test code 0.2 mg/dL 0.1-1.1 = 2343167116) CALCIUM (test code = 9.2 mg/dL 8.6-10.6 8397547247) T PROTEIN (test code = 7.4 g/dL 6.3-8.2 0873683516) ALBUMIN (test code = 4.4 g/dL 3.5-5 5710843077) ALK PHOS (test code = 72 U/L 34-122 4093488603) ALTv (test code = 16 U/L 5-35 1742-6) AST(SGOT) (test code = 25 U/L 13-40 8150447323) eGFR Calculation mL/min/1.73m2 (Non-) (test code = 3883095332) eGFR Calculation mL/min/1.73m2 () (test code = 8709169810) GLENIS (test code = GLENIS) Association of Glomerular Filtration Rate (GFR) and Staging of Kidney Disease* + -+ + ---+| GFR (mL/min/1.73 m2) ?| With Kidney Damage ?| ?Without Kidney Damage+ -------+ ------+ ---------+| ?>90 ?| ?Stage one ?| ? Normal ?+ --+ -+ ----+| ?60-89 ?| ?Stage two ?| ? Decreased GFR ? + -+ + ---+| ?30-59 ?| ?Stage three ?| ? Stage three ? + -+ + ---+| ?15-29 ?| ?Stage four ? | ? Stage four ?+ --+ -+ ----+| ?<15 (or dialysis) ? ?| ?Stage five ? | ? Stage five ?+ --+ -+ ----+ *Each stage assumes the associated GFR level has been in effect for at least three months. ?Stages 1 to 5, with or without kidney disease, indicate chronic kidney disease. Notes: Determination of stages one and two (with eGFR >59mL/min/1.73 m2) requires estimation of kidney damage for at least three months as defined by structural or functional abnormalities of the kidney, manifested by either:Pathological abnormalities or Markers of kidney damage (including abnormalities in the composition of the blood or urine or abnormalities in imaging tests). [facility] Medical CenterLipase, [id number] 06:35:00 Test Item Value Reference Range Interpretation Comments LIPASE (test code = 2450121481) 193 U/L 0-220 Lab Interpretation (test code = Normal 75705-7) [facility] Medical CenterPREGNANCY TEST, [id number] 06:32:00 Test Item Value Reference Range Interpretation Comments PREG SERUM (test code Negative = 2751313649) GLENIS (test code = GLENIS) Less than 10 IU/L. ?If low titer or ectopic is suspected, resubmit specimen in 48-72 hours. [facility] Medical CenterCBC WITH [id number] 06:17:00 Test Item Value Reference Range Interpretation Comments WBC (test code = See_Comment [Automated message] 9690-2) The system K[employer]sover generated this result transmitted ref erence range: 4.30 - 1 1.10 10*3/?L. The re ference range was not u sed to interpret this result as normal/abnor mal. RBC (test code = See_Comment [Automated message] 929-8) The system Krossover generated this result transmitted ref erence range: 3.93 - 5 .25 10*6/?L. The re ference range was not u sed to interpret this result as normal/abnor mal. HGB (test code = 12.5 g/dL 11.6-15 718-7) HCT (test code = 38.2 % 35.7-45.2 4544-3) MCV (test code = 84.7 fL 80.6-95.5 787-2) MCH (test code = 27.7 pg 25.9-32.8 785-6) MCHC (test code = 32.7 g/dL 31.6-35.1 786-4) RDW-SD (test code 43.3 fL 39-49.9 = 90703-3) RDW-CV (test code 13.8 % 12-15.5 = 788-0) PLT (test code = See_Comment [Automated message] 257-3) The system Krossover generated this result transmitted ref erence range: 166 - 35 8 10*3/?L. The re ference range was not u sed to interpret this result as normal/abnor mal. MPV (test code = 12.5 fL 9.5-12.9 83368-6) NRBC/100 WBC (test See_Comment [Automat ed message] code = 5064388459) The syste m which generated this result transmitted ref erence range: 0.0 - 10 .0 /100 WBCs. The refer ence range was not u sed to interpret this result as normal/abnor mal. NRBC x10^3 (test <0.01 See_Comment [Automated message] code = 0301808669) The syste m which generated this result transmitted ref erence range: 10*3/?L. The reference range was not used to interpr et this result as normal/abnormal . GRAN MAT (NEUT) % 50.0 % (test code = 770-8) IMM GRAN % (test 0.20 % code = 9397920143) LYMPH % (test code 36.3 % = 736-9) MONO % (test code 8.4 % = 5905-5) EOS % (test code = 4.4 % 713-8) BASO % (test code 0.7 % = 706-2) GRAN MAT 4.33 10*3/uL 1.88-7.09 x10^3(ANC) (test code = 7476785066) IMM GRAN x10^3 <0.03 0-0.06 (test code = 6563509365) LYMPH x10^3 (test 3.15 10*3/uL 1.32-3.29 code = 731-0) MONO x10^3 (test 0.73 10*3/uL 0.33-0.92 code = 742-7) EOS x10^3 (test 0.38 10*3/uL 0.03-0.39 code = 711-2) BASO x10^3 (test 0.06 10*3/uL 0.01-0.07 code = 704-7) [facility]"
[2023-05-11] MEDS ORDERED: ACETAMINOPHEN 500 MG TAB ONE (21:44)
[2023-05-11 22:04] LABS: SARS-CoV-2 Antigen Rapid Res Negative (Negative)
--- NOTE | 2023-05-11 22:59 | ER ---
Nurse's Notes [facility] Name: Maria C Dalal Age: 32 yrs Sex: Female : 1990 Arrival Date: 05/11/2023 Time: 20:22 Bed IW2 Private MD: Diagnosis: Encounter for screening for other viral diseases-COVID test;Headache Presentation: 05/11 21:25 Chief complaint: Patient states: My son tested positive for covid on Friday and I just vc1 need to get checked out. I've had a headache for about 5 days. Coronavirus screen: Client denies travel out of the [place] in the last 14 days. headache. Ebola Screen: Patient negative for fever greater than or equal to 101.5 degrees Fahrenheit, and additional compatible Ebola Virus Disease symptoms Patient denies exposure to infectious person. Patient denies travel to an Ebola-affected area in the 21 days before illness onset. No symptoms or risks identified at this time. Initial Sepsis Screen: Does the patient meet any 2 criteria? No. Patient's initial sepsis screen is negative. Does the patient have a suspected source of infection? No. Patient's initial sepsis screen is negative. Risk Assessment: Do you want to hurt yourself or someone else? Patient reports no desire to harm self or others. Onset of symptoms was May 11, 2023. 21:25 Method Of Arrival: Ambulatory 1 21:25 Acuity: RAEANN 4 vc1 Triage Assessment: 23:33 Headache History: The patient has had previous headaches and this one is different than 1 previous episodes. General: Appears in no apparent distress. comfortable, Behavior is calm, cooperative, appropriate for age. Pain: Complains of pain in face. Neuro: Level of Consciousness is awake, alert, obeys commands, Oriented to person, place, time, situation, Appropriate for age Reports headache. 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 - Social history:: Smoking status: Patient reports the use of cigarette tobacco products, 3-4, Reported history of juuling and/or vaping. Screenin:32 [facility] ED Fall Risk Assessment (Adult) History of falling in the last 3 months, vc1 including since admission No falls in past 3 months (0 pts) Confusion or Disorientation No (0 pts) Intoxicated or Sedated No (0 pts) Impaired Gait No (0 pts) Mobility Assist Device Used No (0 pt) Altered Elimination No (0 pt) Score/Fall Risk Level 0 - 2 = Low Risk Oriented to surroundings, Maintained a safe environment, Educated pt \T\ family on fall prevention, incl call for assistance when getting out of bed. Abuse screen: Denies threats or abuse. Nutritional screening: No deficits noted. Tuberculosis screening: No symptoms or risk factors identified. Vital Signs: 21:25 BP 123 / 87; Pulse 90; Resp 16; Temp 99; Pulse Ox 100% ; Weight 71.21 kg; Height 5 ft. vc1 2 in. ; Pain 3/10; 21:25 Body Mass Index 28.72 (71.21 kg, 157.48 cm) vc1 21:25 Pain Scale: Adult vc1 ED Course: 20:27 Patient arrived in ED. es 21:13 Mitchell Carrero PA is PHCP. cp 21:13 Mitchell Ashraf MD is Attending Physician. cp 21:27 Triage completed. vc1 21:27 Arm band placed on left wrist. vc1 21:34 SARS RAPID Sent. vc1 21:34 Influenza Screen (a \T\ B) Sent. vc1 23:32 Provided Education on: if symptoms persist take another test. vc1 23:32 No provider procedures requiring assistance completed. Patient did not have IV access vc1 during this emergency room visit. Administered Medications: 21:34 Drug: Acetaminophen PO 1000 mg Route: PO; vc1 Medication: 21:29 VIS not applicable for this client. vc1 Outcome: 22:58 Discharge ordered by MD. cp 23:33 Discharged to home ambulatory. vc1 23:33 Condition: good 23:33 Discharge instructions given to patient, Instructed on discharge instructions, follow up and referral plans. medication usage, Demonstrated understanding of instructions, follow-up care, medications. 23:33 Patient left the ED. vc1 Signatures: Shae Montez Mitchell Carrero PA PA cp Calcote, Vanessa, RN RN vc1 Corrections: (The following items were deleted from the chart) 21:28 21:27 Allergies: No Known Allergies; vc1 vc1 21:52 21:34 SARS-COV-2 RT PCR+MOL.LAB.BRZ drawn and sent. vc1 EDMS
--- NOTE | 2023-05-11 22:59 | EDPHYS ---
Physician Documentation [facility] Name: Maria C Dalal Age: 32 yrs Sex: Female : 1990 Arrival Date: 05/11/2023 Time: 20:22 Bed IW2 Private MD: ED Physician Mitchell Ashraf HPI: 05/11 21:30 This 32 yrs old Female presents to ER via Ambulatory with complaints of Headache. cp 21:30 The patient complains of pain to the top of head and forehead. The patient describes cp the headache as aching, waxing and waning. Onset: The symptoms/episode began/occurred 5 day(s) ago. Associated signs and symptoms: Pertinent negatives: altered mental status, fever, neck stiffness, Photophobia sinus congestion, sinus tenderness, vision changes, vomiting, weakness. Severity of symptoms: in the emergency department the pain is unchanged, despite home interventions. 21:30 Patient reports son recently tested positive for COVID-19 and that she is concerned she cp has COVID. Patient would like testing. 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 - Social history:: Smoking status: Patient reports the use of cigarette tobacco products, 3-4, Reported history of juuling and/or vaping. ROS: 21:33 Constitutional: Negative for body aches, chills, fever, poor PO intake. cp 21:33 Eyes: Negative for injury, pain, redness, and discharge. cp 21:33 ENT: Negative for drainage from ear(s), ear pain, sore throat, difficulty swallowing, difficulty handling secretions. 21:33 Neck: Negative for pain with movement, pain at rest, stiffness. 21:33 Cardiovascular: Negative for chest pain, palpitations. 21:33 Respiratory: Negative for cough, shortness of breath, wheezing. 21:33 Abdomen/GI: Negative for abdominal pain, vomiting, diarrhea, constipation. 21:33 Neuro: Positive for headache, Negative for altered mental status, dizziness, weakness. 21:33 All other systems are negative. Exam: 21:38 Constitutional: The patient appears in no acute distress, alert, awake, non-toxic, well cp developed, well nourished. 21:38 Head/Face: Normocephalic, atraumatic. cp 21:38 Eyes: Periorbital structures: appear normal, Conjunctiva: normal, no exudate, no injection, Sclera: no appreciated abnormality, Lids and lashes: appear normal, bilaterally. 21:38 ENT: External ear(s): are unremarkable, Nose: is normal, Mouth: Lips: moist, Oral mucosa: pink and intact, moist, Posterior pharynx: is normal, airway is patent, no erythema, no exudate. 21:38 Neck: ROM/movement: is normal, is supple, without pain, no range of motions limitations, no meningismus, no nuchal rigidity. 21:38 Chest/axilla: Inspection: normal. 21:38 Cardiovascular: Rate: normal, Rhythm: regular. 21:38 Respiratory: the patient does not display signs of respiratory distress, Respirations: normal, no use of accessory muscles, no retractions, labored breathing, is not present, Breath sounds: are clear throughout, no decreased breath sounds, no stridor, no wheezing. 21:38 Abdomen/GI: Exam negative for discomfort, distension, guarding, Inspection: abdomen appears normal. 21:38 Skin: no rash present. Vital Signs: 21:25 BP 123 / 87; Pulse 90; Resp 16; Temp 99; Pulse Ox 100% ; Weight 71.21 kg; Height 5 ft. vc1 2 in. ; Pain 3/10; 21:25 Body Mass Index 28.72 (71.21 kg, 157.48 cm) vc1 21:25 Pain Scale: Adult vc1 MDM: 21:13 Patient medically screened. cp 22:57 Data reviewed: vital signs, nurses notes, lab test result(s). cp 22:57 Differential diagnosis: intracerebral hemorrhage, meningoencephalitis, migraine, cp sinusitis, subarachnoid bleed, tension headache. Counseling: I had a detailed discussion with the patient and/or guardian regarding the historical points, exam findings, and any diagnostic results supporting the discharge/admit diagnosis, lab results, to return to the emergency department if symptoms worsen or persist or if there are any questions or concerns that arise at home. 05/11 21:24 Order name: Influenza Screen (a \T\ B) cp 05/11 21:29 Order name: SARS RAPID vc1 Administered Medications: 21:34 Drug: Acetaminophen PO 1000 mg Route: PO; vc1 Disposition Summary: 05/11/23 22:58 Discharge Ordered Location: Home cp Problem: new cp Symptoms: have improved cp Condition: Stable cp Diagnosis - Encounter for screening for other viral diseases - COVID test cp - Headache cp Followup: cp - With: Private Physician - When: 2 - 3 days - Reason: Worsening of condition Discharge Instructions: - Discharge Summary Sheet cp - General Headache Without Cause cp - COVID-19 cp - COVID-19: What Your Test Results Mean - [facility] (06/05/2021) cp Forms: - Medication Reconciliation Form cp - Thank You Letter cp - Antibiotic Education cp - Prescription Opioid Use cp - Patient Portal Instructions cp - Leadership Thank You Letter cp Signatures: Dispatcher [employer] EDMS Mitchell Carrero PA PA cp Ira Castanon RN RN vc1 Corrections: (The following items were deleted from the chart) 21:28 21:27 Allergies: No Known Allergies; vc1 vc1 21:52 21:25 SARS-COV-2 RT PCR+MOL.LAB.BRZ ordered. EDMS EDMS
[2023-05-12 00:13] VITALS: BP 123/87; TEMP 99; O2SAT 100
== END 2023-05-11 23:33 | disposition home or self-care (01) ==
LOC: ER 20:22
DX: R51.9 Headache, unspecified (principal); Z20.822 Contact with and (suspected) exposure to COVID-19
CPT/HCPCS: 36415; 87804; 87811; 99283